=== PATIENT | male | born 1930 | race Caucasian/White ===

== ENCOUNTER 2018-04-04 08:36 | Observation (INO) ==
--- NOTE | 2018-04-04 08:58 | Emergency Department Note ---
General Adult HPI - General Chief complaint: Blood Pressure Problem Stated complaint: blood pressure problem Time Seen by Provider: 04/04/18 08:42 Source: patient, EMS Mode of arrival: EMS Limitations: no limitations - History of Present Illness HPI Narrative: 87-year-old man who developed vision loss and somnolence last night. His die welder brought him home from [place] and he recovered without further incident. But then again this morning had a similar episode that lasted a few minutes. He checked his blood pressure was elevated into 190 systolic-he does not normally take blood pressure medicine. Again he is somnolent with blurry vision so paramedics were called. States that he cannot keep his eyes open - Related Data Home Medications Medication Instructions Recorded Confirmed ascorbic acid (vitamin C) ER 500 500 mg PO QDAY 04/06/15 03/08/18 mg capsule,extended release vitamin B12 500 mcg-folic acid 400 1 tab PO QDAY 04/06/15 03/08/18 mcg tablet cholecalciferol (vitamin D3) 4,000 6,000 unit PO QDAY cap 04/20/17 03/08/18 unit capsule Previous Rx's Medication Instructions Recorded lancets 28 gauge See Dose Instructions .ROUTE 11/26/15 .MEDSUPPLY #60 each one touch ultra test strips #100 each 01/22/17 fluticasone 50 mcg/actuation nasal 2 spray INTRANASAL BID #16 g 05/18/17 spray,suspension oxybutynin chloride 5 mg tablet 5 mg PO QHS #30 tab 09/10/17 ketoconazole 2 % topical cream 1 applic TOPICAL BID #60 g 09/18/17 alfuzosin ER 10 mg tablet,extended 10 mg PO QDAY #90 tab 10/02/17 release 24 hr atorvastatin 40 mg tablet 40 mg PO QDAY #90 tab 10/02/17 CPAP & Supplies #1 ea 10/18/17 albuterol sulfate HFA 90 2 puff INHALATION .Q4-6H PRN #18 g 11/08/17 mcg/actuation aerosol inhaler blood sugar diagnostic strips See Dose Instructions .ROUTE 11/08/17 .MEDSUPPLY #100 each fluticasone 100 mcg-vilanterol 25 1 inh INHALATION Q24H #60 each 11/08/17 mcg/dose powder for inhalation umeclidinium 62.5 mcg/actuation 1 inh INHALATION Q24H #30 each 11/08/17 blister powder for inhalation warfarin 3 mg tablet 3 mg PO .COMPLEX #60 tab 12/31/17 Adult Depends #100 each 01/21/18 acetaminophen 300 mg-codeine 60 mg 1 tab PO Q5H PRN #150 tab 01/30/18 tablet warfarin 4 mg tablet 4 mg PO .COMPLEX #34 tab 02/05/18 Allergies Allergy/AdvReac Type Severity Reaction Status Date / Time No Known Drug Allergies Allergy Verified 04/04/18 08:42 Review of Systems All systems ED: reviewed and negative except as stated. Past Medical History - Past Medical History Attestation: Yes: The following information was validated with the patient. [facility]LY [facility] Narrative: Family History (Last Reviewed 03/08/18 @ 11:00 by Kathrin Desai CMA) Mother Cancer Sister Respiratory arrest Fracture, foot Other Heart attack Medical History (Last Reviewed 03/08/18 @ 11:00 by Kathrin Desai CMA) Penile abnormality (Chronic) BPH (benign prostatic hyperplasia) (Chronic) Obstructive sleep apnea (Chronic) Internal derangement of knee (Acute) Snoring (Chronic) Daytime somnolence (Chronic) Chronic back pain (Chronic) COPD (chronic obstructive pulmonary disease) (Chronic) Dyspnea (Chronic) Constipation (Chronic) Coccyodynia (Chronic) Internal hemorrhoid (Chronic) Weakness (Acute) Chronic sinusitis (Chronic) Fatigue (Chronic) Type 2 diabetes mellitus (Chronic) Osteoarthritis of right wrist (Chronic) Vitamin D deficiency (Chronic) Urinary urgency (Chronic) Urinary frequency (Chronic) Testicular hypofunction (Chronic) Stroke (Resolved) Hemochromatosis (Chronic) Depressive disorder (Chronic) nursing home current use of anticoagulant therapy (Chronic) Bacterial conjunctivitis of right eye (Resolved) Paresthesias (Resolved) Transient ischemic attack (Resolved) Tremor (Resolved) Upper respiratory infection (Resolved) Past Surgical History (Last Reviewed 03/08/18 @ 11:00 by Kathrin Desai CMA) History of cholecystectomy (Resolved) Medical history: Reports: COPD, CVA, hypertension Psychiatric history: Reports: no psych history Surgical history ED: Reports: non-contributory - Social History smoking status: Former smoker Alcohol use: Reports: None Drug use: Reports: none Physical Exam No acute distress resting comfortably. Blood pressure here is 167 systolic. Normocephalic atraumatic. Conjunctive are clear sclerae white and nonicteric. Pupils are equal and reactive. no nasal discharge or congestion. Oropharynx is pink and moist. He is wearing dentures. Neck supple without lymphadenopathy or thyromegaly. He does have a left-sided bruit. Heart is regular rate and rhythm no murmur appreciated. Lungs are clear to auscultation bilaterally without wheezes rales rhonchi or jacqueline distress. Abdomen is soft nontender nondistended. No peritoneal signs or guarding. Trace to +1 pedal edema bilaterally. +2 radial pulse. Alert oriented Limitations: no limitations Course Vital Signs Temperature 97.2 F 04/04/18 08:36 Pulse Rate 63 04/04/18 08:36 Respiratory Rate 18 04/04/18 08:36 Blood Pressure 171/89 04/04/18 08:36 Pulse Oximetry (%) 98 04/04/18 08:36 Temperature 97.2 F 04/04/18 08:36 Pulse Rate 62 04/04/18 08:49 Respiratory Rate 17 04/04/18 08:49 Blood Pressure 167/76 04/04/18 08:49 Pulse Oximetry (%) 97 04/04/18 08:49 Disposition Pt seen by TURKEY PICKER/PA only: No Summary: Interviewed and examined patient workup started. Unclear blood pressure issue. Patient loss uncertain cause we will get CT scan. Ultrasound for left-sided bruit Case will be checked out to Dr. Guthrie at shift change Disposition: Still a Patient Condition: Fair Referrals: Melanie Iglesias, NENA, MASTER FISHER [Primary Care Provider] -
[2018-04-04 09:25] LABS: Basophils # (Auto) 0.1 K/mcL (0.0-0.3); Basophils % (Auto) 1.1 % (0.0-2.0); Eosinophils # (Auto) 0.3 K/mcL (0.0-0.7); Eosinophils % (Auto) 5.6 % (0.0-7.0); Lymphocytes # (Auto) 1.5 K/mcL (1.5-4.8); Lymphocytes % (Auto) 29.1 % (15.5-49.0); Mean Cell Volume 95.5 fL (80.0-100.0); Mean Corpuscular HGB Conc 33.2 g/dL (31.0-36.0); Monocytes # (Auto) 0.5 K/mcL (0.1-0.9); Monocytes % (Auto) 9.2 % (1.0-12.0); Platelet Count 199 K/mcL (140-440); RBC 4.19 M/mcL (4.50-5.90); Red Cell Distribution Width 14.4 % (11.5-14.5)
--- NOTE | 2018-04-04 09:32 | Cat Scan Report ---
History: Visual loss, somnolence and hypertension TECHNIQUE: The brain was imaged without contrast at 2.5 mm intervals. The radiation exposure was limited using dose reduction technology. FINDINGS: There is mild atrophy, most apparent in the frontal lobes and anterior portions of the temporal lobes. There is no evidence of hemorrhage, infarct, edema or mass effect. The ventricles and cisterns are normal. The appearance of the brain is unchanged from the prior brain MRI done on 07/14/16. There is mild mucosal thickening along the harris of several ethmoid air cells and sphenoid sinuses. The sinusitis has improved significantly since prior MRI. IMPRESSION: Normal age-related degenerative changes within the brain which have remained stable. Improved chronic sinusitis Dr. Guthrie was called with the results Interpreted and Authenticated by: Ricky Matos 04/04/18
[2018-04-04 09:47] LABS: ALT/SGPT 22 U/l (0-40); Albumin 4.1 gm/dL (3.2-5.2); Albumin/Globulin Ratio 1.6 (1.0-2.3); Alkaline Phosphatase 110 U/L (39-117); Blood Urea Nitrogen 18 mg/dl (8-23)
[2018-04-04 10:22] LABS: Appearance,Urine CLEAR; Bilirubin,Urine NEG (NEG); Color,Urine STRAW; Glucose,Urine (UA) NEGATIVE (NEG); Leukocyte Esterase,Urine NEG /uL (NEG); Protein,Urine NEG (NEG); Specific Gravity,Urine 1.008 (1.000-1.035); Urine Blood NEG mg/dL (<0.03); Urobilinogen,Urine NEG (NEG)
--- NOTE | 2018-04-04 11:03 | Magnetic Resonance Report ---
History: New onset blurred vision, prior stroke TECHNIQUE: Sagittal T1, axial T2 FLAIR and axial diffusion weighted images were obtained. FINDINGS: There is no evidence of an infarct, hemorrhage or mass. There are age-related degenerative changes with mild generalized cerebral atrophy. T2-weighted views reveal the presence of a few small high signal lesions in the centrum semiovale in the frontal and parietal bilaterally. The largest measures 3 x 6 mm and is located posterior to the atrium of the right lateral ventricle. No abnormality is seen within either orbits nor along the visual pathways. Patient may have had prior bilateral cataract resection. There has been no significant change from the prior head CT done earlier the same date. IMPRESSION: Normal age-related degenerative changes and no evidence of infarct or other acute abnormality. Dr. Guthrie was called with the results Interpreted and Authenticated by: Ricky Matos 04/04/18
--- NOTE | 2018-04-04 11:25 | Ultrasound Report ---
CLINICAL INFORMATION: Stroke symptoms with new onset blurred vision COMPARISON: None. TECHNIQUE: Carotid arteries were imaged in sagittal and transverse planes using 5 mHz linear probe: Doppler, color, and 2D. FINDINGS: There is intimal thickening and mixed plaque throughout the common carotid arteries extending up to the carotid bifurcations. Increased flow velocity of 152 cm/s is present in the proximal left common carotid. The lumen appears normal caliber at this level. Normal flow velocities are present in the proximal right common carotid. A 50-69% stenosis is present in the proximal left internal carotid due to plaque formation. Elevated peak systolic flow velocities are present in the mid right internal carotid and distal left internal carotid due to tortuous vessels. These vessels do not appear stenotic. There is antegrade flow in both vertebral arteries. See worksheet by the technologist for velocities in PACS Please correlate with CTA CT Angiography or MRA MR Angiography if surgery is contemplated. 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 This is not hemodynamically significant. Increased flow velocities due to tortuosity in both internal carotids and proximal left common carotid Dr. Guthrie was called with the results Interpreted and Authenticated by: Ricky Matos 04/04/18
--- NOTE | 2018-04-04 11:48 | Emergency Department Note ---
General Adult HPI - General Chief complaint: Blood Pressure Problem Stated complaint: blood pressure problem Time Seen by Provider: 04/04/18 08:42 Source: patient, EMS Mode of arrival: EMS Limitations: no limitations - Related Data Home Medications Medication Instructions Recorded Confirmed ascorbic acid (vitamin C) ER 500 500 mg PO QDAY 04/06/15 03/08/18 mg capsule,extended release vitamin B12 500 mcg-folic acid 400 1 tab PO QDAY 04/06/15 03/08/18 mcg tablet cholecalciferol (vitamin D3) 4,000 6,000 unit PO QDAY cap 04/20/17 03/08/18 unit capsule Previous Rx's Medication Instructions Recorded lancets 28 gauge See Dose Instructions .ROUTE 11/26/15 .MEDSUPPLY #60 each one touch ultra test strips #100 each 01/22/17 fluticasone 50 mcg/actuation nasal 2 spray INTRANASAL BID #16 g 05/18/17 spray,suspension oxybutynin chloride 5 mg tablet 5 mg PO QHS #30 tab 09/10/17 ketoconazole 2 % topical cream 1 applic TOPICAL BID #60 g 09/18/17 alfuzosin ER 10 mg tablet,extended 10 mg PO QDAY #90 tab 10/02/17 release 24 hr atorvastatin 40 mg tablet 40 mg PO QDAY #90 tab 10/02/17 CPAP & Supplies #1 ea 10/18/17 albuterol sulfate HFA 90 2 puff INHALATION .Q4-6H PRN #18 g 11/08/17 mcg/actuation aerosol inhaler blood sugar diagnostic strips See Dose Instructions .ROUTE 11/08/17 .MEDSUPPLY #100 each fluticasone 100 mcg-vilanterol 25 1 inh INHALATION Q24H #60 each 11/08/17 mcg/dose powder for inhalation umeclidinium 62.5 mcg/actuation 1 inh INHALATION Q24H #30 each 11/08/17 blister powder for inhalation warfarin 3 mg tablet 3 mg PO .COMPLEX #60 tab 12/31/17 Adult Depends #100 each 01/21/18 acetaminophen 300 mg-codeine 60 mg 1 tab PO Q5H PRN #150 tab 01/30/18 tablet warfarin 4 mg tablet 4 mg PO .COMPLEX #34 tab 02/05/18 Allergies Allergy/AdvReac Type Severity Reaction Status Date / Time No Known Drug Allergies Allergy Verified 04/04/18 08:42 Past Medical History - Past Medical History Medical history: Reports: COPD, CVA, hypertension Psychiatric history: Reports: no psych history Surgical history ED: Reports: non-contributory - Social History smoking status: Former smoker Alcohol use: Reports: None Drug use: Reports: none Physical Exam Limitations: no limitations Course Vital Signs Temperature 97.2 F 04/04/18 08:36 Pulse Rate 63 04/04/18 08:36 Respiratory Rate 18 04/04/18 08:36 Blood Pressure 171/89 04/04/18 08:36 Pulse Oximetry (%) 98 04/04/18 08:36 Temperature 97.2 F 04/04/18 08:36 Pulse Rate 70 04/04/18 09:01 Respiratory Rate 24 H 04/04/18 09:10 Blood Pressure 172/81 04/04/18 09:01 Pulse Oximetry (%) 96 04/04/18 09:01 Medical Decision Making - [facility] Narrative Medical decision making narrative: The carotid studies show a 50-60% loss on the left carotid, the MRI of the brain was negative. ABCD score is 5 Dr. Encarnacion consulted he will be down to evaluate - Lab Data Result diagrams: 04/04/18 08:48 04/04/18 08:48 Lab Results 04/04/18 04/04/18 04/04/18 Range/Units 08:48 08:48 08:48 WBC 5.0 (4.5-11.0) K/mcL RBC 4.19 L (4.50-5.90) M/mcL Hgb 13.3 L (13.5-16.5) g/dL Hct 40.0 L (41.0-55.0) % MCV 95.5 (80.0-100.0) fL MCH 31.7 (26.0-34.0) pg MCHC 33.2 (31.0-36.0) g/dL RDW 14.4 (11.5-14.5) % Plt Count 199 (140-440) K/mcL MPV 8.2 (7.4-10.4) fL Gran % 55.0 (38.0-78.0) % Lymph % (Auto) 29.1 (15.5-49.0) % Teller % (Auto) 9.2 (1.0-12.0) % Eos % (Auto) 5.6 (0.0-7.0) % Baso % (Auto) 1.1 (0.0-2.0) % Gran # 2.8 (1.8-8.0) K/mcL Lymph # (Auto) 1.5 (1.5-4.8) K/mcL Teller # (Auto) 0.5 (0.1-0.9) K/mcL Eos # (Auto) 0.3 (0.0-0.7) K/mcL Baso # (Auto) 0.1 (0.0-0.3) K/mcL PT (11.9-14.5) sec INR (0.9-1.1) Sodium 141 (133-145) mmol/L Potassium 3.9 (3.3-5.1) mmol/L Chloride 103 (96-108) mmol/L Carbon Dioxide 25 (22-30) mmol/L Anion Gap 13.0 (8-16) BUN 18 (8-23) mg/dl Creatinine 0.9 (0.7-1.2) mg/dl GFR Calculation 76 Glucose 160 H (70-105) mg/dL Calcium 9.4 (8.6-10.4) mg/dl Magnesium 2.0 (1.6-2.5) mg/dL Total Bilirubin 0.5 (0.0-1.0) mg/dL AST 21 (0-37) U/l ALT 22 (0-40) U/l Alkaline Phosphatase 110 (39-117) U/L Troponin T < 0.01 (0-0.03) ng/ml Total Protein 6.6 (5.9-8.4) gm/dL Albumin 4.1 (3.2-5.2) gm/dL Globulin 2.5 (2.2-3.7) gm/dL Albumin/Globulin Ratio 1.6 (1.0-2.3) Urine Color Urine Appearance Urine pH (5.0-9.0) Ur Specific [place] (1.000-1.035) Urine Protein (NEG) mg/dL Urine Glucose (UA) (NEG) mg/dL Urine Ketones (NEG) mg/dL Urine Occult Blood (<0.03) mg/dL Urine Nitrate (NEG) Urine Bilirubin (NEG) mg/dL Urine Urobilinogen (NEG) mg/dL Ur Leukocyte Esterase (NEG) /uL Ur Culture Indicated? 04/04/18 04/04/18 Range/Units 08:48 09:33 WBC (4.5-11.0) K/mcL RBC (4.50-5.90) M/mcL Hgb (13.5-16.5) g/dL Hct (41.0-55.0) % MCV (80.0-100.0) fL MCH (26.0-34.0) pg MCHC (31.0-36.0) g/dL RDW (11.5-14.5) % Plt Count (140-440) K/mcL MPV (7.4-10.4) fL Gran % (38.0-78.0) % Lymph % (Auto) (15.5-49.0) % Teller % (Auto) (1.0-12.0) % Eos % (Auto) (0.0-7.0) % Baso % (Auto) (0.0-2.0) % Gran # (1.8-8.0) K/mcL Lymph # (Auto) (1.5-4.8) K/mcL Teller # (Auto) (0.1-0.9) K/mcL Eos # (Auto) (0.0-0.7) K/mcL Baso # (Auto) (0.0-0.3) K/mcL PT 19.4 H (11.9-14.5) sec INR 1.6 H (0.9-1.1) Sodium (133-145) mmol/L Potassium (3.3-5.1) mmol/L Chloride (96-108) mmol/L Carbon Dioxide (22-30) mmol/L Anion Gap (8-16) BUN (8-23) mg/dl Creatinine (0.7-1.2) mg/dl GFR Calculation Glucose (70-105) mg/dL Calcium (8.6-10.4) mg/dl Magnesium (1.6-2.5) mg/dL Total Bilirubin (0.0-1.0) mg/dL AST (0-37) U/l ALT (0-40) U/l Alkaline Phosphatase (39-117) U/L Troponin T (0-0.03) ng/ml Total Protein (5.9-8.4) gm/dL Albumin (3.2-5.2) gm/dL Globulin (2.2-3.7) gm/dL Albumin/Globulin Ratio (1.0-2.3) Urine Color Straw Urine Appearance Clear Urine pH 6.0 (5.0-9.0) Ur Specific [place] 1.008 (1.000-1.035) Urine Protein Neg (NEG) mg/dL Urine Glucose (UA) Negative (NEG) mg/dL Urine Ketones Neg (NEG) mg/dL Urine Occult Blood Neg (<0.03) mg/dL Urine Nitrate Neg (NEG) Urine Bilirubin Neg (NEG) mg/dL Urine Urobilinogen Neg (NEG) mg/dL Ur Leukocyte Esterase Neg (NEG) /uL Ur Culture Indicated? No Disposition Pt seen by SERVER SERVICE ASSISTANT/PA only: No Clinical Impression: Weakness, Hypertension Disposition: Xfer As Outpt/Obs ([facility]) Condition: Fair Referrals: Melanie Iglesias, NENA, BRAZ[facility] RESISTANCE [Primary Care Provider] - Time of Disposition: 11:48
--- NOTE | 2018-04-04 12:54 | Internal Med History&Physical ---
Medical - H&P: HPI Patient information: Note initiated : 04/04/18 at 12:50 pm Service Date, if different from initiated Date: [] Patient: Art Mtz a 87 y/o M admitted on for Blood Pressure Problem. Chief Complaint: eye weakness, elevated BP History of present illness: Mr. Mtz is a 87 year old M with history of COPD, prior stroke noted in chart, obstructive sleep apnea on CPAP who presents with vision changes. History is obtained speaking with the patient, reviewing old records as well as his and family at bedside. Patient noted fairly abrupt onset while in [facility] last night of an inability to keep both eyelids open. He felt like he had no strength. His vision may have been a little blurry, however when his eyelids were held open, he could see clearly, did not have double vision. He had no plaquing out of the vision, no loss of vision. He never had an episode like this previously. He denies any headaches, no fatigue when chewing, no jaw claudication with chewing. His head does not droop towards the end of the day. He was feeling fine when he went to [facility] prior to the onset of symptoms. There really was no change overnight. However he checked his blood pressure at home this morning, noticed systolic of 190s, has no history of hypertension was concerned and presented to the ED. There was concern for stroke initially, he underwent stroke evaluation with CT which showed no evidence of new or old stroke. Had carotid ultrasound which showed nonsignificant plaquing of 50-60% and the ICA. Underwent stroke protocol MRI which showed no evidence of ischemia or infarct. No evidence of old stroke. Patient's been hospitalized to observe for any progression of neurologic symptoms. He will have further possible TIA workup with echocardiogram. He denies any fevers or chills, no headache, no sinus pressure or drainage. No problems swallowing, no problems handling secretions. He's had no coughing or choking when trying to swallow., No cough or sputum production. He denies any chest pain, no dyspnea at rest. He has chronic dyspnea on exertion which is unchanged. Had no nausea, vomiting, abdominal pain, diarrhea. He notes chronic urinary frequency which is unchanged. For about the last 2 weeks she's had pain in his left elbow down to his left wrist which is unchanged. He chronically feels tired and weak with chronic back and hip pains it's been unchanged ongoing for about the last year. All systems: reviewed and no additional remarkable complaints except as stated Medical - H&P: PMH Medical history: COPD (chronic obstructive pulmonary disease) (Chronic) PFT show 61% of predicted Weakness (Acute) Type 2 diabetes mellitus (Chronic) controlled on metformin, diet; R great toe unable to sense vibration, monofilament normal DJD (degenerative joint disease) (Chronic) wrists, hands, and lower back, knees Osteoarthritis of right wrist (Chronic) Stroke (Resolved) 1997; Jan 2014 Hemochromatosis (Chronic) treated with phlebotomy Transient ischemic attack (Resolved) 1997 Upper respiratory infection (Acute) Bacterial conjunctivitis of right eye (Acute) Snoring (Chronic) Daytime somnolence (Chronic) Cold intolerance (Acute) Chronic back pain (Chronic) Respiratory crackles at right lung base (Acute) Dyspnea (Chronic) Constipation (Chronic) Coccyodynia (Chronic) Internal hemorrhoid (Chronic) Chronic sinusitis (Chronic) Pneumonia (Suspected) Fatigue (Chronic) Vitamin D deficiency (Chronic) Urinary urgency (Chronic) Urinary frequency (Chronic) every 2 hours 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 He is a former smoker, quit smoking in 1962. Does not drink alcohol. Medical - H&P: Meds Home Medications Medication Instructions Recorded Confirmed Type ascorbic acid (vitamin C) ER 500 500 mg PO QDAY 04/06/15 04/04/18 History mg capsule,extended release vitamin B12 500 mcg-folic acid 400 1 tab PO QDAY 04/06/15 04/04/18 History mcg tablet lancets 28 gauge See Dose Instructions .ROUTE 11/26/15 03/08/18 Rx .MEDSUPPLY #60 each one touch ultra test strips #100 each 01/22/17 03/08/18 Rx cholecalciferol (vitamin D3) 4,000 6,000 unit PO QDAY cap 04/20/17 04/04/18 History unit capsule fluticasone 50 mcg/actuation nasal 2 spray INTRANASAL BID #16 g 05/18/1709/13 Rx spray,suspension oxybutynin chloride 5 mg tablet 5 mg PO QHS #30 tab 09/10/17 04/04/18 Rx ketoconazole 2 % topical cream 1 applic TOPICAL BID #60 g 09/18/17 04/04/18 Rx alfuzosin ER 10 mg tablet,extended 10 mg PO QDAY #90 tab 10/02/17 04/04/18 Rx release 24 hr CPAP & Supplies #1 ea 10/18/17 03/08/18 Rx albuterol sulfate HFA 90 2 puff INHALATION .Q4-6H PRN #18 g 11/08/17 04/04/18 Rx mcg/actuation aerosol inhaler blood sugar diagnostic strips See Dose Instructions .ROUTE 11/08/17 03/08/18 Rx .MEDSUPPLY #100 each fluticasone 100 mcg-vilanterol 25 1 inh INHALATION Q24H #60 each 11/08/17 04/04/18 Rx mcg/dose powder for inhalation umeclidinium 62.5 mcg/actuation 1 inh INHALATION Q24H #30 each 11/08/17 04/04/18 Rx blister powder for inhalation Adult Depends #100 each 01/21/18 03/08/18 Rx acetaminophen 300 mg-codeine 60 mg 1 tab PO Q5H PRN #150 tab 01/30/18 04/04/18 Rx tablet warfarin 4 mg tablet 4 mg PO .COMPLEX #34 tab 02/05/18 04/04/18 Rx Atorvastatin [Lipitor] 40 mg PO QHS 04/04/18 04/04/18 History Allergies Allergy/AdvReac Type Severity Reaction Status Date / Time No Known Drug Allergies Allergy Verified 04/04/18 08:42 Medical - H&P: Exam - Constitutional Vitals: Temp Pulse Resp BP Pulse Ox 97.2 F 61 19 169/96 95 04/04/18 08:36 04/04/18 12:33 04/04/18 12:33 04/04/18 12:33 04/04/18 12:33 Exam: GENERAL: Alert, oriented, in no acute distress. Cooperative, appears stated age. HEENT: Atraumatic. Face and smile are symmetric. Moderate ptosis, eyelid has to be held open for pupil and ocular movement testing. PERRL with pupils 2 mm; EOMI with normal upward gaze, no nystagmus; conjunctiva clear, no scleral icterus. Hearing grossly intact. Oropharynx with moist mucous membranes, no lip or gum lesions, no pharyngeal erythema or exudate. Tongue midline without deviation, palate rises symmetrically. Strength at sternocleidomastoid and shoulder shrug is 5/5. NECK: Supple without meningismus, no thyromegaly RESPIRATORY: Breath sounds with right greater than left coarse basilar crackles, equal respiratory expiratory phase, no wheezes or rhonchi. Respiratory effort is unlabored. CARDIOVASCULAR: Regular rate and rhythm, 1/6 systolic murmur at upper right sternal border, radiates across clavicles to the left> right carotids. No gallop or rub. 1+ peripheral edema. Carotid pulses 2+. Pedal pulses 1+. GI: Abdomen soft, nontender, no guarding or rebound. Bowel sounds are present. No hepatosplenomegaly. LYMPHATIC: No cervical or supraclavicular lymphadenopathy MUSCULOSKELETAL: No joint erythema or swelling, decreased range of motion of right shoulder secondary to pain, otherwise normal range of motion in all extremities. SKIN: Intact, warm, dry. Skin turgor normal. NEUROLOGIC: Cranial nerves II through XII as noted above. Muscle mass normal. Strength 5/5 in the bilateral cloth checker, wrist flexors and extensors, biceps, tricep s. Strength 5/5 hip flexors, knee flexors and extensors, ankle flexors and extensors. Patient able to sit upright from 45 on the gurney without arm support. Sensation intact to light touch bilaterally. Deep tendon reflexes 2+ at the biceps and patella. Finger to nose testing intact. No pronator drift. PSYCHIATRIC: Alert, oriented x3, normal mood and affect, normal insight. Medical - H&P: Reslt - Labs CBC & Chem 7: 04/04/18 08:48 04/04/18 08:48 Labs: Short CBC 04/04/18 Range/Units 08:48 WBC 5.0 (4.5-11.0) K/mcL Hgb 13.3 L (13.5-16.5) g/dL Hct 40.0 L (41.0-55.0) % Plt Count 199 (140-440) K/mcL BMP 02/07/19 08:48 Sodium 141 Potassium 3.9 Chloride 103 Carbon Dioxide 25 BUN 18 Creatinine 0.9 Glucose 160 H Calcium 9.4 Cardiac Enzymes 04/04/18 Range/Units 08:48 Troponin T < 0.01 (0-0.03) ng/ml Liver Function 04/04/18 Range/Units 08:48 Total Bilirubin 0.5 (0.0-1.0) mg/dL AST 21 (0-37) U/l ALT 22 (0-40) U/l Alkaline Phosphatase 110 (39-117) U/L Albumin 4.1 (3.2-5.2) gm/dL Urine 04/04/18 Range/Units 09:33 Urine Color Straw Urine Appearance Clear Urine pH 6.0 (5.0-9.0) Ur Specific [place] 1.008 (1.000-1.035) Urine Protein Neg (NEG) mg/dL Urine Glucose (UA) Negative (NEG) mg/dL - Impressions Carotid duplex IMPRESSION: -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 This is not hemodyn amically significant. -Increased flow velocities due to tortuosity in both internal carotids and pro ximal left common carotid - Imaging and Cardiology CT scan - head Status: image reviewed by me (and discussed with interpreting radiologist, Dr. Matos) Additional comments: IMPRESSION: Normal age-related degenerative changes within the brain which have remained stable. Improved chronic sinusitis MRI - head Status: image reviewed by me (and discussed with interpreting radiologist) Additional comments: IMPRESSION: Normal age-related degenerative changes and no evidence of infarct or other acute abnormality. Medical - H&P: A/P - Narrative A/P Narrative: 87-year-old male who presents with vision changes, appears to be related to bilateral ptosis Bilateral ptosis. Unclear etiology. Possible myasthenia gravis. Differential diagnosis also includes third cranial nerve lesion, however brain MRI is not showing evidence of infarct. Lesion at the nucleus the third cranial nerve can produce bilateral symptoms. More peripheral likely be unilateral symptoms. Brainstem TIA a possibility, though no other neurologic findings. No other evidence of weakness in the axial skeleton or limbs Plan: -Observe -Check echocardiogram -If worsens, consider therapeutic trial of pyridostigmine -Send acetylcholine receptor antibody COPD. Acute exacerbation Plan: Continue home regimen. Type 2 diabetes mellitus, not on current medications. Plan: Controlled carbohydrate diet Obstructive sleep apnea Plan: CPAP History of prior stroke. History of "blood clot on brain" No evidence of stroke on current imaging, no old stroke. 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
[2018-04-04] MEDS ORDERED: ACETAMINOPHEN 325 MG TABLET PO PRN (13:26)
[2018-04-04] MEDS ORDERED: cloNIDine HCL 0.1 MG TABLET PO PRN (13:26)
[2018-04-04] MEDS ORDERED: ONDANSETRON 4 MG/2 ML VIAL IV PRN (13:26)
[2018-04-04] MEDS ORDERED: WARFARIN 4 MG TABLET PO ONE (14:30)
[2018-04-04] MEDS: 0.9 % SODIUM CHLORIDE 10 ML SYRINGE IV SCH ×2 (14:37→22:00)
[2018-04-04] MEDS: 0.9 % SODIUM CHLORIDE 1,000 ML IV SCH (14:38)
[2018-04-04 15:10] LABS: C-Reactive Protein < 0.3 mg/dl (0.0-0.8)
[2018-04-04 15:59] LABS: Estimated Average Glucose(eAG) 137 mg/dL; Hemoglobin A1C 6.4 % HGB (4.0-6.0)
[2018-04-04] MEDS ORDERED: ACETAMINOPHEN W/CODEINE #3 1 TABLET PO PRN (21:48)
[2018-04-04] MEDS ORDERED: OXYBUTYNIN CHLORIDE 5 MG TABLET PO SCH (21:48)
[2018-04-04] MEDS ORDERED: ATORVASTATIN 40 MG TABLET PO SCH (21:48)
[2018-04-04] MEDS ORDERED: UMECLIDINIUM BROMIDE INHALATION SCH (22:00)
[2018-04-04] MEDS ORDERED: NON FORMULARY MEDICATION 1 DOSE MISCELL (Fluticasone/Vilanterol [Breo Ellipta 100-25 Mcg I INHALATION SCH (22:00)
[2018-04-05] MEDS: 0.9 % SODIUM CHLORIDE 1,000 ML IV SCH (03:00)
[2018-04-05] MEDS: 0.9 % SODIUM CHLORIDE 10 ML SYRINGE IV SCH (05:48)
[2018-04-05 06:50] LABS: Blood Urea Nitrogen 18 mg/dl (8-23); HDL Cholesterol 70 mg/dl (>40); LDL Cholesterol,Calculated 64 mg/dl (SEE CHART)
[2018-04-05] MEDS ORDERED: INCRUSE ELLIPTA INH SCH (09:00)
[2018-04-05] MEDS ORDERED: amLODIPine 5 MG TABLET PO SCH (09:00)
[2018-04-05] MEDS ORDERED: FLUTICASONE INH SCH (09:00)
[2018-04-05] MEDS ORDERED: VILANTEROL INH SCH (09:00)
[2018-04-05] MEDS ORDERED: PNEUMOCOCCAL 23-VAL P-SAC VAC 0.5 ML SYRINGE IM ONE (10:00)
[2018-04-05] MEDS ORDERED: WARFARIN 4 MG TABLET PO ONE (14:00)
--- NOTE | 2018-04-05 14:12 | Discharge Summary ---
Medical - DS: Prov Patient information: Note initiated : 04/05/18 at 2:10 pm Service Date, if different from initiated Date: [] Patient: Art Mtz 87 y/o M admitted on 04/04/18 for Blood Pressure Problem. Date of admission: 04/04/18 13:13 Discharge date: 04/05/18 Primary care physician: Melanie Iglesias Admitting clinician: Carri Watson Consults: 04/04/18 Consult to Physician [CONS] Stat Comment: Consulting Provider: Carri Watson Reason For Exam: Physician to Consult Discharging clinician: Carri Watson Medical - DS: Meds - Discharge Medications Prescriptions: amLODIPine BESYLATE [Amlodipine Besylate] 2.5 mg PO DAILY #30 tablet Active and Home Medications: Home Medications ascorbic acid (vitamin C) ER 500 mg capsule,extended release 500 mg PO QDAY 04/06/15 [History Confirmed 04/04/18 Last Taken Unknown] vitamin B12 500 mcg-folic acid 400 mcg tablet 1 tab PO QDAY 04/06/15 [History Confirmed 04/04/18 Last Taken 04/03/18 10:00] lancets 28 gauge See Dose Instructions .ROUTE .MEDSUPPLY #60 each 11/26/15 [Rx Confirmed 03/08/18 Last Taken Unknown] one touch ultra test strips #100 each 01/22/17 [Rx Confirmed 03/08/18 Last Taken Unknown] cholecalciferol (vitamin D3) 4,000 unit capsule 6,000 unit PO QDAY cap 04/20/17 [History Confirmed 04/04/18 Last Taken 04/03/18 10:00] fluticasone 50 mcg/actuation nasal spray,suspension 2 spray INTRANASAL BID #16 g 05/18/17 [Rx Confirmed 04/04/18 Last Taken 04/03/18 22:00] oxybutynin chloride 5 mg tablet 5 mg PO QHS #30 tab 09/10/17 [Rx Confirmed 04/04/18 Last Taken 04/03/18 22:00] ketoconazole 2 % topical cream 1 applic TOPICAL BID #60 g 09/18/17 [Rx Confirmed 04/04/18 Last Taken Unknown] alfuzosin ER 10 mg tablet,extended release 24 hr 10 mg PO QDAY #90 tab 10/02/17 [Rx Confirmed 04/04/18 Last Taken 04/04/18 10:00] CPAP & Supplies #1 ea 10/18/17 [Rx Confirmed 03/08/18 Last Taken Unknown] albuterol sulfate HFA 90 mcg/actuation aerosol inhaler 2 puff INHALATION .Q4-6H PRN #18 g 11/08/17 [Rx Confirmed 04/04/18 Last Taken 04/03/18 22:00] blood sugar diagnostic strips See Dose Instructions .ROUTE .MEDSUPPLY #100 each 11/08/17 [Rx Confirmed 03/08/18 Last Taken Unknown] fluticasone 100 mcg-vilanterol 25 mcg/dose powder for inhalation 1 inh INHALATION Q24H #60 each 11/08/17 [Rx Confirmed 04/04/18 Last Taken 04/03/18 22:00] umeclidinium 62.5 mcg/actuation blister powder for inhalation 1 inh INHALATION Q24H #30 each 11/08/17 [Rx Confirmed 04/04/18 Last Taken Unknown] Adult Depends #100 each 01/21/18 [Rx Confirmed 03/08/18 Last Taken Unknown] acetaminophen 300 mg-codeine 60 mg tablet 1 tab PO Q5H PRN #150 tab 01/30/18 [Rx Confirmed 04/04/18 Last Taken 04/04/18 08:00] warfarin 4 mg tablet 4 mg PO .COMPLEX #34 tab 02/05/18 [Rx Confirmed 04/04/18 Last Taken 04/03/18 22:00] Atorvastatin [Lipitor] 40 mg PO QHS 04/04/18 [History Confirmed 04/04/18 Last Taken 04/03/18 22:00] Medical - DS: Hosp Hospital course: Presentation: Mr. Mtz is a 87 year old M with history of COPD, prior stroke noted in chart, obstructive sleep apnea on CPAP who presents with vision changes. History is obtained speaking with the patient, reviewing old records as well as his and family at bedside. Patient noted fairly abrupt onset while in [place] last night of an inability to keep both eyelids open. He felt like he had no strength. His vision may have been a little blurry, however when his eyelids were held open, he could see clearly, did not have double vision. He had no plaquing out of the vision, no loss of vision. He never had an episode like this previously. He denies any headaches, no fatigue when chewing, no jaw claudication with chewing. His head does not droop towards the end of the day. He was feeling fine when he went to [facility] prior to the onset of symptoms. There really was no change overnight. However he checked his blood pressure at home this morning, noticed systolic of 190s, has no history of hypertension was concerned and presented to the ED. There was concern for stroke initially, he underwent stroke evaluation with CT which showed no evidence of new or old stroke. Had carotid ultrasound which showed nonsignificant plaquing of 50-60% and the ICA. Underwent stroke protocol MRI which showed no evidence of ischemia or infarct. No evidence of old stroke. Patient's been hospitalized to observe for any progression of neurologic symptoms. He will have further possible TIA workup with echocardiogram. He denies any fevers or chills, no headache, no sinus pressure or drainage. No problems swallowing, no problems handling secretions. He's had no coughing or choking when trying to swallow., No cough or sputum production. He denies any chest pain, no dyspnea at rest. He has chronic dyspnea on exertion which is unchanged. Had no nausea, vomiting, abdominal pain, diarrhea. He notes chronic urinary frequency which is unchanged. For about the last 2 weeks she's had pain in his left elbow down to his left wrist which is unchanged. He chronically feels tired and weak with chronic back and hip pains it's been unchanged ongoing for about the last year. Course: Patient remained stable overnight his ptosis spontaneously resolved without any further intervention. He was running high normal blood pressures, sometimes low hypertensive range. He started amlodipine pain 2.5 mg daily. Prescriptions provided that at discharge. Ultimately, etiology of his symptoms is not clear. This could possibly be early myasthenia gravis. Less suspicion for third cranial nerve lesion, no evidence of infarct or ischemia on MRI (would need to be third cranial nerve nucleus lesion to provide bilateral ptosis). He did not have evidence of other muscular weakness. His erythrocyte sedimentation rate and CRP were normal, giant cell arteritis is very unlikely. I discharged him home, advised him to follow up with primary care and seek referral to neurology if further symptoms were to develop. TIA and stroke have been ruled out. Acetylcholine receptor antibodies are pending at discharge. Discharge diagnosis: Bilateral ptosis, resolved Secondary discharge diagnosis: Elevated blood pressure, and antihypertensive therapy started - Time Spent with Patient Total time spent providing and/or coordinating discharge services: Greater than 30 minutes Medical - DS: Exam - Constitutional Vitals: Vital Signs Temp Pulse Pulse Pulse Resp BP BP 04/05/18 13:57 98.4 F 63 16 155/78 04/05/18 11:29 97.9 F 16 142/68 04/05/18 07:37 97.7 F 12 141/93 04/05/18 04:20 04/05/18 03:15 98.1 F 16 110/68 04/05/18 00:38 04/05/18 00:24 99.7 F H 16 135/75 04/04/18 21:24 04/04/18 20:23 74 20 04/04/18 20:22 76 20 04/04/18 20:10 98.3 F 18 156/83 04/04/18 19:15 60 04/04/18 19:01 61 147/75 04/04/18 18:01 58 L 105/65 04/04/18 17:19 56 L 04/04/18 17:01 53 L 144/71 04/04/18 16:02 61 142/80 04/04/18 15:01 115/62 04/04/18 14:48 76 68 Pulse Ox 04/05/18 13:57 97 04/05/18 11:29 95 04/05/18 07:37 97 04/05/18 04:20 96 04/05/18 03:15 96 04/05/18 00:38 98 04/05/18 00:24 96 04/04/18 21:24 96 04/04/18 20:23 96 04/04/18 20:22 94 04/04/18 20:10 97 04/04/18 19:15 96 04/04/18 19:01 95 04/04/18 18:01 97 04/04/18 17:19 96 04/04/18 17:01 97 04/04/18 16:02 95 04/04/18 15:01 04/04/18 14:48 Intake and Output 04/05/18 04/05/18 04/05/18 05:59 13:59 21:59 Intake Total 1728 450 Output Total 925 1225 Balance 803 -775 Intake: IV 928 450 Sodium Chloride 0.9% 1,000 ml @ 928 450 75 mls/hr IV .[id number] [id number] Rx#: [id number] Oral 800 Output: Void Amount 925 1225 Other: Meal snack Percent of Meal Consumed 100% Feeding Ability Assist with Tray Set Up Urine Appearance Clear Urine Color Bright Yellow Urine Odor Normal Normal Stool Size Moderate Large Stool Color Brown Brown Stool Consistency Formed Formed # Voids 3 # Bowel Movements 1 Additional comments: General: In no acute distress Chest: Clear, and liver Cardio vascular: Regular Abdomen: Soft, nontender Neuro: Alert, oriented to person, place, situation. Face is symmetric. No lid lag or ptosis. No development of lid lag or ptosis with repeated blinking. Pupils are equal. Extraocular movements intact. No diplopia. Medical - DS: Data Labs on day of discharge: Labs from last 24 hours 04/05/18 04/05/18 04/04/18 03:35 03:35 08:48 ESR PT 17.9 H INR 1.5 H Sodium 141 Potassium 4.4 Chloride 107 Carbon Dioxide 26 Anion Gap 8.0 BUN 18 Creatinine 0.8 GFR Calculation 80 Glucose 118 H Hemoglobin A1c 6.4 H Estim Average Glucose 137 Calcium 9.4 C-Reactive Protein < 0.3 Triglycerides 135 Cholesterol 160 LDL Cholesterol, Calc 64 Non-HDL Cholesterol 90 HDL Cholesterol 70 04/04/18 08:48 ESR 15 PT INR Sodium Potassium Chloride Carbon Dioxide Anion Gap BUN Creatinine GFR Calculation Glucose Hemoglobin A1c Estim Average Glucose Calcium C-Reactive Protein Triglycerides Cholesterol LDL Cholesterol, Calc Non-HDL Cholesterol HDL Cholesterol - Impressions Echocardiogram Left ventricle is normal in size There is borderline concentric left ventricular hypertrophy Left ventricular systolic function is normal The IVC measures normal and shows normal inspiratory collapse Carotid duplex IMPRESSION: -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 This is not hemodynamically significant. -Increased flow velocities due to tortuosity in both internal carotids and proximal left common carotid CT scan - head IMPRESSION: Normal age-related degenerative changes within the brain which have remained stable. Improved chronic sinusitis MRI - head IMPRESSION: Normal age-related degenerative changes and no evidence of infarct or other acute abnormality. Medical - DS: A/P - Patient/Caregiver Discharge Instructions Activity: increase activity as tolerated Diet: Consistent Carbohydrate Additional Instructions: If you have recurrent symptoms, please talk to primary care about referral to a neurologist for evaluation of possible myasthenia gravis. - Follow up Plan Follow up with: Melanie Iglesias NENA, [employer] [Primary Care Provider] - (1-2 weeks) Disposition: Home, Self-Care Prognosis: Fair Rehab Potential: Fair Overall status at discharge: patient is back to baseline Medical - DS: Qual - VTE Deep Vein Thrombosis/Pulmonary Embolism Present on Admission: No
[2018-04-05] MEDS ORDERED: ATORVASTATIN 20 MG TABLET PO SCH (21:00)
== END 2018-04-05 14:37 | disposition home or self-care (01) ==
LOC: ED 08:36 → ICU 08:36
PROVIDERS: ADMIT Internal Medicine; ATTEND Internal Medicine